=== PATIENT | female | born 1960 | race Caucasian/White ===

== ENCOUNTER 2024-05-03 06:50 | Day surgery (SDC) | payer MEDICARE, OTHER, SELFPAY ==
[2024-05-03] VITALS (7 sets, daily range): BP systolic 95–148; BP diastolic 62–102; PULSE 48–63; RESP 14–16; TEMP 36.2–36.6; O2SAT 91–99; BMI 25.8
--- OUTSIDE RECORDS SUMMARY | 2024-05-03 06:58 | XMS_ITS | Clinical Summary ---
Author Organization [facility] Address [place], [place] [address] Care Team Providers Care Esol Teacher Name Role Phone Denise Castillo DO Primary Care Provider Allergies No known active allergies Medications Medication Sig Dispensed Refills Start Date End Date Status durable medical equipment (DME)Indications:Hallu x valgus with bunions, left,S/P foot surgery, left 01ES-M Shavonne Garcia. Medium 1 Each 04/08/2024 Active Active Problems Problem Noted Date Diagnosed Date PTSD (post-traumatic stress disorder) 11/03/2015 Encounters Date Type Department Care Team Description 04/21/2024 7:30 AM CDT Office Visit [facility] [address] [place] [address] Ronnie Morris DO Preoperative Exam (05/03) 04/21/2024 Travel 04/08/2024 3:40 PM CDT Ancillary Procedure [facility] [address] [place] [phone] 04/08/2024 3:35 PM CDT Ancillary Procedure [facility] [address] [place] [phone] 04/08/2024 3:15 PM CDT Office Visit [facility] [address] [place] [phone] Celso Petit DPM Follow Up (Bilateral bunion pain, discuss surgery) 04/08/2024 Travel from Last 3 Months Immunizations Name Administration Dates Next Due COVID-19 VACCINE SPIKEVAX (M ODERNA 50MCG/0.5ML) 12YO+ PFS 06/05/2023 COVID-19 vaccine ([employer] NTech 30mcg/0.3mL) 12YO+ JADEN-SUCROSE PF, MDV 01/03/2022 COVID-19 vaccine ([employer] NTech 30mcg/0.3mL) PF, MDV 10/10/2020,09/19/2020 Influenza A (H1N1), Inactivated 09/05/2009 Influenza RIV4 (Age 18+ Years) PRESERV FREE 10/16 Influenza, IIV4 05/26/2023,07/03/2021,09/20/2016 Influenza, IIV4 (=>6mos) MDV 06/10/2020,06/24/20 19 Td, Preservative Free (age >= 7 Years) 8 Tdap 05/26/2023 Zoster (Shingrix-RZV, recombinant) 04/10/2022, Family History Medical History Relation Name Comments Cancer Maternal Grandfather Cancer Maternal Grandmother Good Health Mother Cancer-breast Paternal Grandmother Fibroids Sister 1 Cancer-ovarian No Family History Relation Name Status Comments Brother 1 Alive Brother 2 Alive Brother 3 Alive Father MVA Maternal Grandfather Maternal Grandmother Mother Alive Paternal Grandmother Sister 1 Alive Sister 2 Alive Social History Tobacco Use Types Packs/Day Years Used Date Smoking Tobacco: Never Smokeless Tobacco: Never Tobacco Cessation:Counseling Given: Yes Alcohol Use Standard Drinks/Week Comments Yes 7 (1 standard drink = 0.6 oz pur e alcohol) PHQ-2 Answer Date Recorded PHQ-2 TOTAL SCORE 0 05/26/2023 Social Connections Answer Date Recorded Frequency of Communication with Friends and Fami ly 0 04/21/2024 Financial Resource Strain Answer Date R ecorded Difficulty of Paying Living Expenses 3 04/21/2024 Difficulty of Paying Living Expenses Not on file 04/21/2024 Food Insecurity Answer Date Recorded Worried About Running Out of Food in the Last Ye ar 1 04/21/2024 Transportation Needs Answer Date Record ed Lack of Transportation (Medical) 1 04/21/2024 Housing Stability Answer Date Recorded Unable to Pay for Housing in the Last Year 1 04/21/2024 Sex and Gender Information Value Date Recorded Sex Assigned at Not on file Gender Identity Not on file Sexual Orientation Not on file Travel History Travel Start Travel End [place] 04/06/2024 04/07/2024 Obstetrics History Last Filed Vital Signs Vital Sign Reading Time Taken Comments Blood Pressure 124/84 04/21/2024 7:31 AM CDT Pulse 68 04/21/2024 7:31 AM CDT Temperature 36.6 ??C (97.9 ??F) 04/08/2024 3:10 PM CD T Respiratory Rate - - Oxygen Saturation 99% 04/21/2024 7:31 AM CDT Inhaled Oxygen Concentration - - Weight 74.9 kg (165 lb 3.2 oz) 04/21/2024 7:31 A M CDT Height 171.5 cm (5' 7.5) 04/21/2024 7:31 AM CDT Body Mass Index 25.49 04/21/2024 7:31 AM CDT Plan of Treatment Upcoming Encounters Date Type Department Care Team (Late st Contact Info) Description 05/03/2024 11:30 AM CDT Office Visit [facility] at [address] [phone] Celso Petit DPM [address] [place] [address] 05/05/2024 2:00 PM CDT Office Visit [facility] [address] [place] [address] Celso Petit DPM [address] [place] [address] 05/19/2024 8:45 AM CDT Office Visit [facility] [address] [place] [address] Celso Petit DPM [address] [place] [address] 06/23/2024 8:45 AM REPAIR SPECIALIST Office Visit [facility] [address] [place] [address] Celso Petit DPM [address] [place] [place] [address] Health Maintenance Due Date Last Done Comments DEXA/DXA scan for age 65+ 2024 04/18/2022 Pneumococcal series for age 65+ (1 of 1 - PCV) 2024 COVID-19 vaccine series (2022- season) 2024 06/05/2023, 01/03/2022, 07/05/2021, Additional history exists Influenza for age 65+ 04/18/2024 05/26/2023 , 07/03/2021, 06/10/2020, Additional history exists Depression screening for age 12+ 05/26/2024 05/26/2023, 04/10/2022, 01/26/2021, Additional history exists Mammogram for age 45-75 05/29/2024 05/29/20 23, 04/18/2022, 01/24/2021, Additional history exists BMI (ht and wt on same day) for age 18+ 04/21/2025 04/21/2024, 05/26/2023, 04/10/2022, Additional history exists Lipids for age 45-75 06/05/2028 06/05/2023, 04/18/2022, 01/24/2021, Additional history exists Colonoscopy through age 75 02/22/203102/22, 02/22/2021, 02/22/2021 Tetanus booster 05/26/2033 05/26/2023, 11/03/2017 Fecal testing non-DNA (FIT,FOBT,iFOBT) for age 45-75 Discontinued 02/04/2016 Hepatitis C screening for ag e 18-79 Completed 09/20/2016 Zoster (shingles) series for age 50+ Completed 04/10/2022, 01/09/2022 Tdap Completed 05/26/2023 HIV for age 15-65 Completed 06/05/2023 Procedures Procedure Name Priority Date/Time Associated Diagnosis Comments XR FOOT 3 VIEWS RIGHT Routine 04/08/2024 3:35 PM CDT Hallux rigidus, right foot XR FOOT 3 VIEWS LEFT Routine 04/08/2024 3:35 PM CDT Hallux valgus with bunions, left ANTI HIV 1/2 Routine 06/05/2023 7:41 AM CDT Screening for HIV (human immunodeficiency virus) LIPID PANEL W REFLEX MEASURED LDL Routine 06/05/2023 7:41 AM CDT Screening for lipid disorders XR MAMMO HERMILO BILAT SCREEN IMPLANT Routine 05/29/2023 8:41 AM CDT Visit for screening mammogram XR DXA BONE DENSITY 2 SITES AXIAL Routine 04/18/2022 1:21 PM CDT Post-menopausal COLONOSCOPY SCREENING Routine 02/22/2021 7:16 AM CDT Screening for colon cancer ANTI HCV Routine 09/20/2016 9:45 AM REPAIR SPECIALIST Need for hepatitis C screening test OCCULT BLOOD IFOBT STOOL Routine 02/04/2016 7:17 AM CDT Screening for colorectal cancer from Last 3 Months or Most Recently Relevant to Health Maintenance Results * XR FOOT 3 VIEWS RIGHT (04/08/2024 3:35 PM CDT) Anatomical Region Laterality Modality FEET, FOOT R Computed Radiogr aphy 04/09/2024 7:08 AM CDT Narrative 04/09/2024 7:08 AM CDT For Patients: ??As a result of the Century Cures Act, medical imaging exams and procedure reports are released immediately into your electronic medical record. ??You may view this report before your referring provider. ??If you have questions, please contact your health care provider. INDICATION: Hallux rigidus, right foot. TECHNIQUE: Three weightbearing views of the right foot. COMPARISON: 02/20/2021. 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 Alignment is fairly anatomical. Remaining right foot negative. Dictated by Joanna Baires MD @ 04/09/2024 7:08:16 AM (Electronically Signed) Procedure Note Loyd Baires MD - 04/09/2024 For Patients: As a result of the Cures Act, medical imagingexams and procedure reports are released immediately into your electronicmedical record. You may view this report before your referring provider.If you have questions, please contact your health care provider. INDICATION: Hallux rigidus, right foot. TECHNIQUE: Three weightbearing views of the right foot. COMPARISON: 02/20/2021. 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 Alignment is fairlyanatomical. Remaining right foot negative. Dictated by Joanna Baires MD @ 04/09/2024 7:08:16 AM (Electronically Signed) Celso Petit DPCy GENERAL IMAGING * XR FOOT 3 VIEWS LEFT (04/08/2024 3:35 PM CDT) Anatomical Region Laterality Modality FEET, FOOT L Computed Radiogr aphy 04/09/2024 7:06 AM CDT Narrative 04/09/2024 7:06 AM CDT For Patients: ??As a result of the Cures Act, medical imaging exams and procedure reports are released immediately into your electronic medical record. ??You may view this report before your referring provider. ??If you have questions, please contact your health care provider. INDICATION: Hallux valgus with bunion. TECHNIQUE: Three weightbearing views of the left foot Findings : Prominent bunion deformity distal 1st metatarsal. Valgus angulation with widening of the 1st and 2nd intermetatarsal angle. Findings are slightly more pronounced than on the study of 02/20/2021. Dictated by Joanna Baires MD @ 04/09/2024 7:06:05 AM (Electronically Signed) Procedure Note Loyd Baires MD - 04/09/2024 For Patients: As a result of the 21st Century Cures Act, medical imagingexams and procedure reports are released immediately into your electronicmedical record. You may view this report before your referring provider.If you have questions, please contact your health care provider. INDICATION: Hallux valgus with bunion. TECHNIQUE: Three weightbearing views of the left foot Findings : Prominent bunion deformity distal 1st metatarsal. Valgus angulation withwidening of the 1st and 2nd intermetatarsal angle. Findings are slightlymore pronounced than on the study of 02/20/2021. Dictated by Joanna Baires MD @ 04/09/2024 7:06:05 AM (Electronically Signed) Celso Petit DPM GENERAL IMAGING * (ABNORMAL) LIPID PANEL W REFLEX MEASURED LDL (06/05/2023 7:41 AM CDT) CHOLESTEROL,TOTAL 225(H) 100 - 199 mg/dL 06/05/2023 1:23 PM CDT [facility] Comment: Cholesterol, Total Reference Ranges Desirable <200 mg/dL Borderline 200-239 mg/dL High >=240 mg/dL TRIGLYCERIDES 82 <150 mg/dL 06/05/2023 1:23 PM CDT [facility] HDL CHOLESTEROL 65 >40 mg/dL 1:23 PM CDT [facility] NON-HDL CHOLESTEROL 160(H) <145 mg/dl 06/05/2023 1:23 PM CDT [facility] CHOL/HDL RATIO 3.46 <4.50 06/05/2023 1:23 PM CDT [facility] LDL CHOLESTEROL 144(H) <=130 mg/dL 06/05/2023 1:23 PM CDT [facility] VLDL CHOLESTEROL 16 <=30 mg/dL 06/05/2023 1:23 PM CDT [facility] PROVIDER ORDERED STATUS RANDOM 06/05/2023 1:23 PM CDT [facility] Blood BLOOD SPECIMEN / Unknown Venipuncture / Unknown 06/05/2023 7:41 AM CDT 06/05/2023 7:41 AM CDT Denise Castillo DO CHEMISTRY Performing Organization Address City/[facility]/ZIP Co de Phone Number [facility] [address] [place] [id number], [place] * ANTI HIV 1/2 [56753.0] (06/05/2023 7:41 AM CDT) HIV-1/HIV-2 SCREEN Non-Reacti ve Non-Reacti ve 06/05/2023 1:55 PM CDT [facility] Comment:HIV-1 p24 and HIV-1/ HIV-2 Ab Not Detected. Blood BLOOD SPECIMEN / Unknown Venipuncture / Unknown 06/05/2023 7:41 AM CDT 06/05/2023 7:41 AM CDT Denise Castillo DO SEND OUTS Performing Organization Address [facility] Co de Phone Number [facility] [address] [place] [id number], [place] * XR MAMMO HERMILO BILAT SCREEN IMPLANT (05/29/2023 8:41 AM CDT) Anatomical Region Laterality Modality BREASTS, Breast Left, Breast Right Bilateral Mammography Impressions 05/29/2023 2:50 PM CDT ??There is no radiographic evidence for malignancy. ??Recommend annual mammograms. MAMMOGRAM ASSESSMENT: ??ACR 2 Benign PATIENTS: You will also receive a letter with your examination results in an easy to read format. ??If you have questions about your results, please contact your referring provider. Narrative 05/29/2023 2:50 PM CDT For Patients: As a result of the 21st Century Cures Act, medical imaging exams and procedure reports are released immediately into your electronic medical record. You may view this report before your referring provider. If you have questions, please contact your health care provider. XR MAMMO HERMILO BILAT SCREEN IMPLANT [[id number]] CLINICAL HISTORY: ??This is an asymptomatic 63 y.o. patient. INDICATION FOR EXAM: Mammogram Screening. TECHNIQUE: CC & MLO views were obtained. Implant displacement views were obtained. This study was evaluated with the assistance of Computer-Aided Detection. Breast Tomosynthesis was used in interpretation. COMPARISON FILMS: Yes 04/18/22 [facility] 01/24/21 [facility] FINDINGS: ??The breasts are heterogeneously dense, which may obscure small masses. ??No suspicious masses or microcalcifications. ??There are breast implant(s) present.. Denise Castillo DO MAMMO * (ABNORMAL) XR DXA BONE DENSITY 2 SITES AXIAL (04/18/2022 1:21 PM CDT) Anatomical Region Laterality Modality Spine, HIPS, HIPL, HIPR Other Impressions 04/25/2022 12:42 PM CDT Osteopenia. RECOMMENDATIONS: The National Osteoporosis Foundation recommends pharmacologic treatment for patients with T-scores of -2.5 or less, patients with prior history of fragility fractures, or patients with 10-year probability of greater than 3% at hips or greater than 20% of suffering major osteoporotic fractures. Recommend continued optimization of calcium and vitamin D intake through dietary means and/or supplementation and regular exercise. Repeat scan recommended in 3-5 years. Madhuri Khoury PA-C [facility] 04/25/2022 . Narrative 04/25/2022 12:42 PM CDT For Patients: Results are automatically released to your [facility] ([employer]) account once available, in compliance with federal regulations. This means that you may see your results before your provider has had a chance to review them. Please allow 2-3 business days for your provider to comment on the results. XR DXA Bone Mineral Density (BMD) EXAM LOCATION: [facility] [address] [facility] [address] PATIENT NAME: Tiffany Polo DATE OF : 1960 EXAM DATE: 04/18/2022 REQUESTING PROVIDER: Denise Castillo DO GENDER AT : female HEIGHT: 5' 6.54 (04/10/2022) WEIGHT: ??174 lb (04/10/2022) MENOPAUSAL STATUS: Postmenopausal RACE/ETHNICITY: White RISK FACTORS: White Race CURRENT MEDICATION FOR BONE LOSS: NONE INDICATION: Post-Menopause COMPARISON DATE(S): None DXA scans are compared to prior studies for a patient only when the two (or more) studies were performed on the same scanner. It is not possible to compare data generated on one scanner to data from another because there are not standards in DXA equipment. This applies even if the two scanners are made by the same instructional resource teacher. PROCEDURE: Dual-energy x-ray absorptiometry performed with routine technique. Reporting is completed in the form of a T-score. The T-score represents the standard deviation from peak bone mass based on young healthy adult. A Z-score is used for diagnosis in premenopausal women, and for men under the age of 50. FINDINGS: RESULT LUMBAR SPINE L1 - L3 ??BMD: 0.985 g/cm2 T-Score: - 1.6 Z-Score: - 0.6 Change from prior: ??None RESULTS FEMUR Left femoral neck BMD: 0.889 g/cm2 T-Score: - 1.1 Z-Score: + 0.0 Change from prior: ??None Right femoral neck BMD: 0.834 g/cm2 T-Score: - 1.5 Z-Score: - 0.4 Change from prior: ??None Left hip BMD: 0.970 g/cm2 T-Score: - 0.3 Z-Score: + 0.5 Change from prior: ??None Right hip BMD: 0.934 g/cm2 T-Score: - 0.6 Z-Score: + 0.2 Change from prior: ??None WHO criteria: Normal: T-score at or above -1 SD Osteopenia: T-score between -1.1 and -2.4 SD Osteoporosis: T-score at or below -2.5 SD FRAX RISK CALCULATION (USED FOR OSTEOPENIA ONLY): 10-year probability of major osteoporotic fracture: 8.5%. 10-year probability of hip fracture: 0.8%. Denise Castillo DO DEXA * COLONOSCOPY (02/22/2021 7:40 AM CDT) 02/22/2021 7:40 AM CDT Narrative Transcriptions Blaine Luciano MD - 02/22/2021 8:44 AM CDT Patient Name: Tiffany Polo Procedure Date: 02/22/2021 Gender: Female Date of : 1960 Admit Type: Outpatient Procedure: Colonoscopy Proceduralist: Blaine Luciano MD , Samantha Bacon, RN(Nurse) Referring MD: Denise Castillo Indications/Pre-Op Diagnosis: Screening for colorectal malignant neoplasm, This is the patient's first colonoscopy Medications: Midazolam 4 mg IV, Fentanyl 200 microgramsIV, The level of sedation administered wasmoderate Procedure Description: The patient had risks, benefits and alternatives explained to andgave informed consent. The patient had a stable cardiopulmonary status and judged an adequate candidate for conscious sedation. The colonoscope was passed through the anus and advanced to thececum, identified by appendiceal orifice and ileocecal valve. TheColonoscope was passed through the and advanced to. The colonoscopy was performed without difficulty. The patient tolerated the procedure well. The quality of the bowel preparation was good. The ileocecal valve, appendiceal orifice, and rectum were photographed. Complications: No immediate complications. Estimated Blood Loss & Specimen: Estimated blood loss: none. Specimen collected - Yes and sent to Laboratory Findings: The perianal and digital rectal examinations were normal. Two sessile polyps were found in the sigmoid colon. The polyps were 3mm in size. These polyps were removed with a cold biopsy forceps.Resection and retrieval were complete. The exam was otherwise without abnormality on direct and retroflexion views. Impressions/Post-Op Diagnosis: - Two 3 mm polyps in the sigmoid colon, removed with a cold biopsy forceps. Resected and retrieved. - The examination was otherwise normal on direct and retroflexionviews. Recommendation: - Patient has a contact number available for emergencies. The signsand symptoms of potential delayed complications were discussed with the patient. Return to normal activities tomorrow. Written discharge instructions were provided to the patient. - Resume previous diet. - Continue present medications. - Await pathology results. - Repeat colonoscopy is recommended. The colonoscopy date will be determined after pathology results from today's exam become available for review. Moderate Sedation: Moderate (conscious) sedation was administered by the endoscopy nurse and supervised by the endoscopist. The following parameters were monitored: oxygen saturation, heart rate, respiratory rate, blood pressure, adequacy of pulmonary ventilation and reponse to care. Please refer to the patient's medical record flowsheets and nursing notes for moderate sedation details. Total physician intraservice time was 37 minutes. Blaine Luciano MD 02/22/2021 8:44:14 AM This report has been signed electronically. Note Initiated On: 02/22/2021 7:40 AM Procedure Code(s): --- Professional --- 90797, Colonoscopy, flexible; with biopsy, single or multiple Diagnosis Code(s): --- Professional --- Z12.11, Encounter for screening formalignant neoplasm of colon K63.5, Polyp of colon CPT copyright 2020 [employer]. All rights reserved. The codes documented in this report are preliminary and upon bolt labeler reviewmay be revised to meet current compliance requirements. Scope In: 8:02:40 AM Scope Withdrawal Time 0 hours 8 minutes 29 seconds Scope Out: 8:37:18 AM Blaine Luciano MD PROCEDURE ORD * ANTI HCV [08321.2] (09/20/2016 9:45 AM REPAIR SPECIALIST) HEPATITIS C ANTIBODY Non-Reacti ve Non-Reacti ve 09/20/2016 4:37 PM [facility] Blood BLOOD SPECIMEN / Unknown Venipuncture / Unknown 09/20/2016 9:45 AM REPAIR SPECIALIST 09/20/2016 9:45 AM REPAIR SPECIALIST Narrative [facility] - 09/20/2016 4:37 PM REPAIR SPECIALIST Antibodies to HCV not detected; does not exclude the possibility of exposure to HCV. Denise Castillo DO SEND OUTS [facility] [address] [place] [address], * OCCULT BLOOD IFOBT STOOL (02/04/2016 7:17 AM CDT) STOOL BLOOD ,IFOBT Negative Negative 02/09/2016 11:52 AM CDT [facility] Stool STOOL SPECIMEN / Unknown Non-Blood / Unknown 02/04/2016 7:17 AM CDT 02/09/2016 7:17 AM CDT Denise Castillo DO [facility] [address] [place] [address], from Last 3 Months or Most Recently Relevant to Health Maintenance Care Teams Esol Teacher Relationship Specialty Start Date End Date Denise Castillo [place] [address] PCP - General Family Practice 08/03/15
[2024-05-03] MEDS: LACTATED RINGERS 1000 ML 1,000 ML 100 ML IV (07:30)
[2024-05-03] MEDS: SODIUM CHLORIDE 0.9 % (FLUSH) 10 ML SYRINGE IVF (07:34)
--- NOTE | 2024-05-03 08:15 | CRLHL7_ITS ---
For Patients: As a result of the Century Cures Act, medical imaging exams and procedure reports are released immediately into your electronic medical record. You may view this report before your referring provider. If you have questions, please contact your health care provider. Indication: Right Cheilectomy Technique: One fluoroscopic image of the right foot. Fluoroscopic time 10 seconds. IMPRESSION: Fluoroscopic guidance for cheilectomy. Dictated by Salvatore Cruz MD @ 05/03/2024 10:16:40 AM (Electronically Signed)
--- NOTE | 2024-05-03 08:15 | CRLHL7_ITS ---
For Patients: As a result of the Cures Act, medical imaging exams and procedure reports are released immediately into your electronic medical record. You may view this report before your referring provider. If you have questions, please contact your health care provider. Indication: Left Bunionectomy Technique: Two fluoroscopic images left foot. Fluoroscopic time 10 seconds. IMPRESSION: Fluoroscopic guidance for left bunionectomy. Dictated by Salvatore Cruz MD @ 05/03/2024 10:17:29 AM (Electronically Signed)
[2024-05-03] MEDS: CEFAZOLIN 2 GM INJ IVP (08:28)
[2024-05-03] MEDS: BUPIVACAINE 0.25% 30 ML INJECTION (08:53)
--- NOTE | 2024-05-03 10:34 | W.ANESCHARGE ---
Anesthesia Charges Start Date/Time Anesthesia Start Date: 05/03/24 Anesthesia Start Time: 08:22 Stop Date/Time Anesthesia Stop Date: 05/03/24 Anesthesia Stop Time: 10:32
--- NOTE | 2024-05-03 11:52 | W.ANESCHARGE ---
Anesthesia Charges Start Date/Time Anesthesia Start Date: 05/03/24 Anesthesia Start Time: 08:22 Stop Date/Time Anesthesia Stop Date: 05/03/24 Anesthesia Stop Time: 10:32
[2024-05-03] MEDS: OxyCODONE/APAP 5-325 TABLET PO (12:04)
--- NOTE | 2024-05-17 06:25 | W.PODPROC_ITS ---
Date of Procedure: 05/03/24 Surgeon: Celso Petit DPM Pre-op Diagnosis: 1. Hallux rigidus right 2. Hallux valgus with bunion left Post-op Diagnosis: 1. Hallux rigidus right 2. Hallux valgus with bunion left Type of Procedure: 1. Bunionectomy by distal metatarsal osteotomy left 2. Cheilectomy 1st MPJ right Indications: Patient has elected undergo surgical correction for bilateral foot issues. She has failed conservative care. He she was is to proceed with surgical intervention. I reviewed the procedure, recovery, expectation potential complications. These include but not limited to: Poor wound healing, infection, under correction, over correction, potential need for future surgery, hardware irritation, nerve injury, complex regional pain syndrome, deep venous thrombosis and pulmonary embolism. She understands risks written consent was obtained. Site marked. Procedure Description: Patient brought the operating room placed supine position on operating table at that time IV sedation was initiated local anesthetic was then injected into the right and left feet. She was prepped and draped in sterile fashion. Standard time-out protocol was followed. Procedure 1: Left foot was exsanguinated the tourniquet inflated. Dorsomedial curvilinear incision was made over the 1st metatarsophalangeal joint left foot. Incision was carried down through skin subcutaneous tissues. A standard T- shaped capsular incision was made and capsular tissues reflected away from the 1st metatarsal head. Sagittal saw was used to resect the enlarged medial bony prominence. Standard lateral lease was then performed and the 1st intermetatarsal space releasing the plantar lateral joint capsule, dorsal fibular sesamoidal ligaments and the adductor tendon. Guide pin was placed in the 1st metatarsal head and a long dorsal arm modified Fer bunionectomy was performed. Capital fragment was transposed laterally and fixated with 3.0 mm screws x2. First metatarsal head was then remodeled with a sagittal saw and rotary bur. Wound was thoroughly irrigated normal sterile saline. Redundant capsular tissue was then excised and the capsule repaired with 3-0 Vicryl. Subcutaneous tissues reapproximated 4-0 Monocryl and skin closed with 4-0 Prolene. Sterile dressing was applied and the tourniquet was released. Capillary fill time returned all digits. Procedure 2: Right foot was exsanguinated the tourniquet inflated. A dorsal linear incision was made over the 1st metatarsophalangeal joint right foot. Incision was carried down through skin subcutaneous tissues. Linear capsular incision was made. Large dorsal osteophyte that was loose was removed. The proximal phalangeal base and 1st metatarsal head bone spur was removed with a combination of a rongeur and rotary bur. C-arm confirmed adequate resection. Wound was thoroughly irrigated normal sterile saline. Hypertrophied joint capsule was excised and the capsule then repaired with 3-0 Vicryl. Subcutaneous tissues reapproximated 4-0 Monocryl and skin closed with 4-0 Prolene. Sterile dressing was applied the tourniquet was released. Normal capillary fill time returned all digits. She was transferred from OR to PACU vital signs stable vascular status intact. Complications: None apparent. Anesthesia: MAC and local Hemostasis: ankle Estimated blood loss (mL): 5 Implants: Bernice Fixos 3.0 cannulated screws x2 Specimens: none sent Disposition: same day
== END 2024-05-03 12:22 | disposition home or self-care (01) ==
LOC: OR 06:56
PROVIDERS: PCP Family Medicine; Visit Provider Podiatrist
PROC: (CPT 28289; principal; 2024-05-03 08:15)
PROC: (CPT 28292; 2024-05-03 08:15)
DX: M20.12 Hallux valgus (acquired), left foot (principal); M20.21 Hallux rigidus, right foot
CPT/HCPCS: 28296; 28289; 01480; 73620; A9270; C1713; J0665; J0690; J2704; J3010; J3490; J7120